=== PATIENT | male | born 1935 ===

== ENCOUNTER → 2018-05-28 20:07 | Outpatient (REF) | payer BC, SELFPAY ==
[2018-05-28 20:40] LABS: BUN Creatinine Ratio 16.7 (6-22); Blood Urea Nitrogen 25 mg/dL (9-20); Calcium 9.8 mg/dL (8.4-10.2); Carbon Dioxide 25 mmol/L (22-32); Chloride 102 mmol/L (98-107); Estimated Glomerular Filt Rate 44.9 mL/min (>60); Glucose 109 mg/dL (80-110); HEMOLYSIS < 15 (0-50); Sodium 139 mmol/L (137-145)
[2018-05-28 20:41] LABS: Creatinine Urine Random 70.5 mg/dL
[2018-05-28 20:44] LABS: Microalbumi Creatinin Ratio Ur 48.2 ug/mg CR (<30); Microalbumin Urine Random 3.4 mg/dL (0-1.6); Potassium 5.5 mmol/L (3.4-5.1)
[2018-05-28 21:14] LABS: Ferritin 9.2 ng/mL (17.9-464)
== END ==
LOC: LAB 20:07
PROVIDERS: Visit Provider Family Medicine
DX: E11.9 Type 2 diabetes mellitus without complications (principal); D64.9 Anemia, unspecified
CPT/HCPCS: 36415; 80048; 82043; 82570; 82728

== ENCOUNTER → 2018-07-20 13:19 | Outpatient (ROUT) | payer OTHER, SELFPAY ==
[2018-07-20 14:02] LABS: Add Manual Diff / Slide Review NO; Basophils Absolute Auto 0 /uL (0-100); Basophils Percent Auto 0.3 % (0-2); Eosinophils Absolute Auto 100 /uL (0-450); Eosinophils Percent Auto 1.7 % (2-4); Hemoglobin 15.5 g/dL (13.5-17.5); Lymphocytes Absolute Auto 1300 /uL (1100-4500); Lymphocytes Percent Auto 22.7 % (25-40); Mean Corpuscular HGB Conc 33.1 % (30-36); Mean Corpuscular Hemoglobin 28.9 PG (26-34); Mean Corpuscular Volume 87.3 fL (80-100); Monocytes Absolute Auto 500 /uL (0-900); Monocytes Percent Auto 8.6 % (3-14); Neutrophils Absolute Auto 3900 /uL (1500-7000); Neutrophils Percent Auto 66.7 % (50-75); Platelet Count 161 X10^3/uL (150-400); Red Blood Cell Count 5.38 X10^6/uL (4.5-5.9); Red Cell Distribution Width 21.5 % (11.6-14.8); White Blood Cell Count 5.8 X10^3/uL (4.5-11.0)
[2018-07-20 14:27] LABS: Anisocytosis 3+
[2018-07-20 14:31] LABS: Ferritin 26.3 ng/mL (17.9-464)
== END ==
PROVIDERS: Visit Provider Nurse Practitioner Family
DX: D64.9 Anemia, unspecified (principal)
CPT/HCPCS: 36415; 82728; 85025